=== PATIENT | female | born 1985 | race Caucasian/White ===

== ENCOUNTER 2024-11-03 07:55 | Inpatient (IN) | payer MEDICAID ==
[~2024-11-03] VITALS: Ht 162.6 cm; Wt 76.6 kg
[2024-11-03 09:40] LABS: BASOPHILS % (AUTO) 1.3 % (0.0-2.0); EOSINOPHILS % (AUTO) 2.3 % (1.0-6.0); HEMATOCRIT 33.4 % (36-46); LYMPHOCYTES # (AUTO) 4.2 K/uL (1.0-4.8); MEAN CORPUSCULAR HEMOGLOBIN 27.8 pg (26.0-34.0); MEAN CORPUSCULAR HGB CONC 32.9 G/dL (31.0-37.0); MEAN CORPUSCULAR VOLUME 85 fL (80-100); MONOCYTES # (AUTO) 0.5 K/uL (0.1-1.0); MONOCYTES % (AUTO) 5.1 % (2.0-9.0); NEUTROPHILS # (AUTO) 4.5 K/uL (1.8-7.7); NEUTROPHILS % (AUTO) 47.3 % (40.0-70.0); PLATELET COUNT (AUTO) 122 K/uL (150-450); RED BLOOD CELL COUNT(AUTO) 3.94 MIL/uL (4.00-5.20); RED CELL DISTRIBUTION WIDTH 20.3 % (11.5-14.5); WHITE BLOOD COUNT (AUTO) 9.5 K/uL (4.5-11.0)
[2024-11-03 09:49] LABS: ANION GAP 10 mmol/L (8-16); CALCIUM, TOTAL 8.1 mg/dL (8.8-10.5); CARBON DIOXIDE 26 mmol/L (22-29); CHLORIDE 107 mmol/L (98-107); CREATININE 0.56 mg/dL (0.60-1.30); GLOMERULAR FILTR. RATE CALC > 60 mL/min (>60); GLUCOSE,RANDOM 94 mg/dL (70-110); POTASSIUM 3.4 mmol/L (3.5-5.1); SODIUM SERUM 143 mmol/L (136-145); UREA NITROGEN, BLOOD 4 mg/dL (7-18)
[2024-11-03 09:53] LABS: COVID AG,FIA SOURCE NASAL SWAB
[2024-11-03 09:54] LABS: PROTHROMBIN TIME 12.9 SEC (9.4-11.6)
[2024-11-03 09:55] LABS: ALBUMIN 3.1 g/dL (3.4-5.0); BILIRUBIN,TOTAL 1.9 mg/dL (0.1-1.0); TOTAL PROTEIN, SERUM 8.2 g/dL (6.4-8.2)
[2024-11-03 10:01] LABS: APPEARANCE,URINE CLEAR (CLEAR); BILIRUBIN,URINE NEGATIVE (NEGATIVE); COLOR,URINE YELLOW (YELLOW); GLUCOSE, URINE (UA) NEGATIVE (NEGATIVE); KETONES,URINE NEGATIVE (NEGATIVE); LEUKOCYTE ESTERASE ,URINE NEGATIVE (NEGATIVE); NITRATE,URINE NEGATIVE (NEGATIVE); OCCULT BLOOD,URINE NEGATIVE (NEGATIVE); PH,URINE 5.5 (5.0-8.0); PH,URINE DRUG SCREEN 5.5 (5.0-8.0); PROTEIN,URINE NEGATIVE (NEGATIVE); SPECIFIC GRAVITIY, URINE 1.012 (1.003-1.030)
[2024-11-03 10:12] LABS: AMPHET/METH SCREEN,URINE NEGATIVE (NEGATIVE); BARBITURATE SCREEN, URINE POSITIVE (NEGATIVE); BENZODIAZEPINES SCREEN,URINE POSITIVE (NEGATIVE); CANNABINOID SCREEN,URINE POSITIVE (NEGATIVE); COCAINE SCREEN,URINE NEGATIVE (NEGATIVE); METHADONE SCREEN, URINE NEGATIVE (NEGATIVE); OPIATE SCREEN,URINE NEGATIVE (NEGATIVE); PHENCYCLIDINE SCREEN,URINE NEGATIVE (NEGATIVE)
[2024-11-03 10:14] LABS: ALCOHOL, URINE DRUG SCREEN POSITIVE (NEGATIVE)
[2024-11-03 10:37] LABS: SARS-COV2 (COVID) ANTIGEN,FIA Negative (Negative)
[2024-11-03] MEDS: MAGNESIUM SULFATE 2 GM, MVI, ADULT NO.1 WITH VIT K 10 ML, THIAMINE 100 MG, FOLIC ACID 1... IV ONE (11:10)
[2024-11-03] MEDS: KETOROLAC TROMETHAMINE 30 MG/ML VIAL IVP ONE (11:23)
[2024-11-03 20:00] VITALS: BP 133/68; PULSE 85; RESP 19; TEMP 97.7; O2SAT 98
[2024-11-03 20:10] VITALS: BP 133/68; PULSE 85; RESP 19; TEMP 97.7; O2SAT 98
[2024-11-03] MEDS ORDERED: ChlordiazePOXIDE HCL 25 MG CAPSULE PO PRN (20:15)
[2024-11-03] MEDS ORDERED: SODIUM CHLORIDE 0.9% 1,000 ML ONE (20:18)
[2024-11-03] MEDS: 1: MAGNESIUM SULFATE 2 GM, MVI, ADULT NO.1 WITH VIT K 10 ML, THIAMINE 100 MG, FOLIC ACID IV SCH (21:10)
[2024-11-03] MEDS: LORazepam 2 MG/ML VIAL IVP PRN (22:26)
[2024-11-04] VITALS (8 sets, daily range): BP systolic 92–111; BP diastolic 48–61; PULSE 75–82; RESP 18–19; TEMP 98–98.7; O2SAT 97–98
[2024-11-04 06:57] LABS: ANION GAP 9 mmol/L (8-16); CALCIUM, TOTAL 7.8 mg/dL (8.8-10.5); CARBON DIOXIDE 26 mmol/L (22-29); CHLORIDE 107 mmol/L (98-107); CREATININE 0.47 mg/dL (0.60-1.30); GLOMERULAR FILTR. RATE CALC > 60 mL/min (>60); GLUCOSE,RANDOM 92 mg/dL (70-110); POTASSIUM 3.6 mmol/L (3.5-5.1); SODIUM SERUM 142 mmol/L (136-145); UREA NITROGEN, BLOOD 6 mg/dL (7-18)
[2024-11-04 06:59] LABS: BASOPHILS % (AUTO) 1.1 % (0.0-2.0); EOSINOPHILS % (AUTO) 2.8 % (1.0-6.0); LYMPHOCYTES # (AUTO) 1.5 K/uL (1.0-4.8); MEAN CORPUSCULAR HEMOGLOBIN 27.5 pg (26.0-34.0); MEAN CORPUSCULAR HGB CONC 32.5 G/dL (31.0-37.0); MEAN CORPUSCULAR VOLUME 85 fL (80-100); MONOCYTES # (AUTO) 0.3 K/uL (0.1-1.0); MONOCYTES % (AUTO) 7.3 % (2.0-9.0); NEUTROPHILS % (AUTO) 50.8 % (40.0-70.0); PLATELET COUNT (AUTO) 59 K/uL (150-450); RED CELL DISTRIBUTION WIDTH 20.4 % (11.5-14.5)
[2024-11-04] MEDS ORDERED: ChlordiazePOXIDE HCL 25 MG CAPSULE PO PRN (07:00)
[2024-11-04 07:31] LABS: HEMATOCRIT 25.4 % (36-46); HEMOGLOBIN 8.2 g/dL (12.0-16.0)
[2024-11-04] MEDS: ONDANSETRON HCL 4 MG/2 ML VIAL IVP ONE (07:40)
[2024-11-04] MEDS: PANTOPRAZOLE SODIUM 40 MG/VIAL IVP ONE (07:40)
[2024-11-04] MEDS: ChlordiazePOXIDE HCL 25 MG CAPSULE PO SCH (08:56)
[2024-11-05 04:00] VITALS: BP 94/47; PULSE 66; RESP 18; TEMP 97.7; O2SAT 98
[2024-11-05 06:28] LABS: BASOPHILS % (AUTO) 1.1 % (0.0-2.0); EOSINOPHILS % (AUTO) 3.4 % (1.0-6.0); HEMATOCRIT 25.3 % (36-46); HEMOGLOBIN 8.6 g/dL (12.0-16.0); LYMPHOCYTES # (AUTO) 1.4 K/uL (1.0-4.8); LYMPHOCYTES % (AUTO) 42.3 % (22.0-44.0); MEAN CORPUSCULAR HEMOGLOBIN 28.6 pg (26.0-34.0); MEAN CORPUSCULAR HGB CONC 33.8 G/dL (31.0-37.0); MEAN CORPUSCULAR VOLUME 85 fL (80-100); MONOCYTES # (AUTO) 0.3 K/uL (0.1-1.0); NEUTROPHILS # (AUTO) 1.5 K/uL (1.8-7.7); NEUTROPHILS % (AUTO) 45.2 % (40.0-70.0); PLATELET COUNT (AUTO) 53 K/uL (150-450); RED BLOOD CELL COUNT(AUTO) 2.99 MIL/uL (4.00-5.20); RED CELL DISTRIBUTION WIDTH 19.7 % (11.5-14.5); WHITE BLOOD COUNT (AUTO) 3.2 K/uL (4.5-11.0)
[2024-11-05 06:30] VITALS: BP 96/56; PULSE 73; RESP 18; TEMP 97.7; O2SAT 97
[2024-11-05 06:43] LABS: ANION GAP 8 mmol/L (8-16); CALCIUM, TOTAL 8.1 mg/dL (8.8-10.5); CARBON DIOXIDE 23 mmol/L (22-29); CHLORIDE 108 mmol/L (98-107); CREATININE 0.46 mg/dL (0.60-1.30); GLOMERULAR FILTR. RATE CALC > 60 mL/min (>60); GLUCOSE,RANDOM 76 mg/dL (70-110); POTASSIUM 3.7 mmol/L (3.5-5.1); SODIUM SERUM 139 mmol/L (136-145); UREA NITROGEN, BLOOD 3 mg/dL (7-18)
[2024-11-05 07:30] VITALS: BP 105/51; PULSE 79; RESP 19; TEMP 98; O2SAT 97
[2024-11-05 11:24] VITALS: BP 99/48; PULSE 77; RESP 19; TEMP 98.1; O2SAT 98
[2024-11-05] MEDS: KETOROLAC TROMETHAMINE 15 MG/ML VIAL IVP PRN (12:34)
[2024-11-05 15:32] VITALS: BP 98/49; PULSE 68; RESP 20; TEMP 98.4; O2SAT 97
[2024-11-06] MEDS ORDERED: ChlordiazePOXIDE HCL 10 MG CAPSULE PO PRN (07:00)
[2024-11-06] MEDS ORDERED: ChlordiazePOXIDE HCL 10 MG CAPSULE PO SCH (09:00)
[2024-11-07] MEDS ORDERED: ChlordiazePOXIDE HCL 10 MG CAPSULE PO PRN (07:00)
== END 2024-11-05 16:10 | disposition short-term general hospital (02) | DRG 897 ==
LOC: EMS 07:57 → EDH 11:39 → 5S 20:02 → 5N 11-04 05:23
PROVIDERS: ADMIT Hospitalist; ATTEND Hospitalist
DX: F10.129 Alcohol abuse with intoxication, unspecified (principal); E44.0 Moderate protein-calorie malnutrition; D68.59 Other primary thrombophilia; D61.818 Other pancytopenia; R45.851 Suicidal ideations; E72.20 Disorder of urea cycle metabolism, unspecified; E87.6 Hypokalemia; K74.60 Unspecified cirrhosis of liver; Y90.8 Blood alcohol level of 240 mg/100 ml or more; Z20.822 Contact with and (suspected) exposure to COVID-19; F43.21 Adjustment disorder with depressed mood; F12.10 Cannabis abuse, uncomplicated; Z91.51 Personal history of suicidal behavior; Z98.84 Bariatric surgery status; Y92.89 Other specified places as the place of occurrence of the external cause; Z68.29 Body mass index [BMI] 29.0-29.9, adult
CPT/HCPCS: 71045; 80048; 80076; 80307; 81003; 82140; 85025; 85610; 85730; 96365; 96375; 99291; G0480; J1885; J2060; J2405; J2470; J3411; J3475; J3490; J7030; 36415-L1; 36415-TC